=== PATIENT | female | born 1965 | race Caucasian/White ===

== ENCOUNTER 2020-12-17 06:10 | Inpatient (IN) | payer BC, MEDICARE ==
[~2020-12-17] VITALS: Ht 154.9 cm; Wt 60.8 kg
[~2020-12-17 06:10] MED LIST: NORCO 5-325 TA1 EACH PO
[2020-12-17 06:12] VITALS: BP 148/91
[2020-12-17] MEDS ORDERED: ASA81BEC PO (06:24)
[2020-12-17] MEDS ORDERED: CARVEDILOL12.5 MG PO (06:24)
[2020-12-17 06:39] LABS: HEMOGLOBIN 11.3 gm/dL (12.0-15.0); MCHC 33.3 g/dL (28.0-37.0); MCV 108.4 fL (80.0-100.0); MPV 10.2 fl. (7.2-11.1); NUCLEATED RBCS 0 /100WBC; PLATELET COUNT* 169 thou/uL (150-400); RBC 3.14 mil/uL (4.20-5.00); RDW-CV 13.8 % (10.5-14.5); WBC 24.8 thou/uL (4.0-11.0)
[2020-12-17 06:48] LABS: CALCIUM 8.6 mg/dL (8.5-10.1); POTASSIUM 3.9 mmol/L (3.5-5.1)
[2020-12-17 06:59] LABS: ALBUMIN 2.9 g/dL (3.4-5.0); TOTAL BILIRUBIN 2.3 mg/dL (<0.1-1.0); TOTAL PROTEIN 8.8 g/dL (6.4-8.2)
[2020-12-17 07:21] LABS: BE -0.1 mmol/L (-2 to +3); PCO2 38.8 mmHg (35.0-45.0); pH 7.415 (7.340-7.450)
[2020-12-17 07:25] LABS: PO2 43.3 mmHg (75.0-100.0)
[2020-12-17 07:42] LABS: ABSOLUTE LYMPHOCYTES 1.2 thou/uL (0.8-5.3); ABSOLUTE NEUTROPHILS 23.6 thou/uL (1.6-8.1)
[2020-12-17 07:43] LABS: PLATELET ESTIMATE ADEQUATE
[2020-12-17 09:56] VITALS: BP 118/88
[2020-12-17 11:00] VITALS: BP 104/74
--- NOTE | 2020-12-17 12:23 | EKG ---
[place] [address] ELECTROCARDIOGRAM REPORT Name: EWELINA GONZALEZ Room: [address] IN ..#: [id number] Admission: 12/17/20 Attend Phys: Lillian Truong, Discharge: Date of : 65 Date of Service: 12/17/20 0610 Report #: [id number] THIS REPORT FOR: //name// [facility] ED Test Date: 2020-12-17 Test Time: 06:10:41 Pat Name: EWELINA GONZALEZ Department: Room: [facility] Gender: F Yard Person: [place] : 1965 Requested By: Larissa Cox Order Number: [id number] MD: Melecio Naidu Measurements Intervals [place] Rate: 109 P: 53 MS: 162 QRS: 13 QRSD: 84 T: 61 QT: 360 QTc: 485 Interpretive Statements Sinus tachycardia No previous ECG available for comparison Electronically Signed On 12-17-2020 12:22:52 CDT by Melecio Naidu [email or web address] <ELECTRONICALLY SIGNED> By: Melecio Naidu MD, [facility] 12/17/20 1222 9 9 Melecio Naidu MD, [facility] /EPI
--- NOTE | 2020-12-17 12:42 | 2DMMODE ---
[place] [address] 2 D/M-MODE ECHOCARDIOGRAM Name: GONZALEZEWELINA K Room: [address] IN [facility]#: [id number] Admission: 12/17/20 Attend Phys: Lillian Truong, Discharge: Date of : 65 Date of Service: 12/17/20 1242 Report #: [id number] THIS REPORT FOR: cc: Иван Du MD, Tuongvan T. MD Holkins, John M. MD [facility] ~ APPROVED REPORT Study performed: 12/17/2020 11:03:08 EXAM: Comprehensive 2D, Doppler, and color-flow Echocardiogram Patient Location: In-Patient Room #: 104 Status: routine BSA: 1.59 HR: 78 bpm BP: 103/74 mmHg Rhythm: NSR Other Information Study Quality: Good Indications Congestive Heart Failure 2D Dimensions IVSd: 9.18 (7-11mm) LVOT Diam: 19.45 (18-24mm) LVDd: 43.93 mm PWd: 8.11 (7-11mm) Ascending Ao: 29.19 (22-36mm) LVDs: 34.17 (25-40mm) Aortic Root: 25.81 mm Volumes Left Atrial Volume (Systole) LA ESV Index: 30.50 mL/m2 Aortic Valve AoV Peak Efrain.: 0.94 m/s AO Peak Gr.: 3.54 mmHg LVOT Max P.72 mmHg AO Mean Gr.: 1.85 mmHg LVOT Mean P.31 mmHg LVOT Max V: 0.83 m/s AO V2 VTI: 17.49 cm LVOT Mean V: 0.53 m/s MACEY (VTI): 2.72 cm2 LVOT V1 VTI: 16.00 [place] [address] 2 D/M-MODE ECHOCARDIOGRAM Name: EWELINA GONZALEZ Room: [address] IN ..#: [id number] Admission: 12/17/20 Attend Phys: Lillian Truong, Discharge: Date of : 65 Date of Service: 12/17/20 1242 Report #: [id number] Mitral Valve E/A Ratio: 1.84 MV Decel. Time: 132.60 ms MV E Max Efrain.: 1.13 m/s MV PHT: 38.46 ms MVA (PHT): 5.72 cm2 TDI E/Lateral E': 11.30 E/Medial E': 11.30 Medial E' Efrain.: 0.10 m/s Lateral E' Efrain.: 0.10 m/s Pulmonary Valve PV Peak Efrain.: 0.70 m/s PV Peak Gr.: 1.94 mmHg Tricuspid Valve RAP Estimate: 5.00 mmHg TR Peak Gr.: 17.69 mmHg RVSP: 22.00 mmHg PA Pressure: 22.00 mmHg Left Ventricle The left ventricle is normal size. Regional wall motion abnormalities are noted with mid anterior and septal hypokinesis. There is normal left ventricular wall thickness. Left ventricular systolic function is mild to moderately decreased. LVEF is 40-45%. The left ventricular diastolic function is normal. Right Ventricle The right ventricle is normal size. The right ventricular systolic function is normal. Atria The left atrium size is normal. The right atrium size is normal. Aortic Valve The aortic valve is normal in structure. No aortic regurgitation is present. There is no aortic valvular stenosis. Mitral Valve The mitral valve is normal in structure. Mild to moderate mitral regurgitation. No evidence of mitral valve stenosis. Tricuspid Valve The tricuspid valve is normal in structure. Mild tricuspid regurgitation[place] [address] 2 D/M-MODE ECHOCARDIOGRAM Name: EWELINA GONZALEZ Room: [address] IN [facility]#: [id number] Admission: 12/17/20 Attend Phys: Lillian Truong, Discharge: Date of : 65 Date of Service: 12/17/20 1242 Report #: [id number] Pulmonic Valve The pulmonary valve is normal in structure. Trace pulmonic regurgitation. Great Vessels The aortic root is normal in size. IVC is normal in size and collapses >50% with inspiration. Pericardium There is no pericardial effusion. <Conclusion> The left ventricle is normal size. There is normal left ventricular wall thickness. Left ventricular systolic function is mild to moderately decreased. LVEF is 40-45%. The right ventricle is normal size. The left atrium size is normal. The aortic valve is normal in structure. The mitral valve is normal in structure. Mild to moderate mitral regurgitation. The tricuspid valve is normal in structure. Mild tricuspid regurgitation. No pulmonary hypertension. IVC is normal in size and collapses >50% with inspiration. There is no pericardial effusion. Regional wall motion abnormalities are noted with mid anterior and septal hypokinesis. <ELECTRONICALLY SIGNED> By: Melecio Naidu MD, FACC 12/17/20 1242 [id number] Melecio Naidu MD, FACC /INF
--- NOTE | 2020-12-17 13:25 | NUR ---
CM ATTEMPTED TO COMPLETE ASSESSMENT VIA TELEPHONE D/T ISOLATED PRECAUTIONS. THERE WAS NO ANSWER ON PT CELL PHONE/ROOM PHONE OR PHONE.
[2020-12-17 14:07] LABS: BE -2.6 mmol/L (-2 to +3); PCO2 35.1 mmHg (35.0-45.0); pH 7.408 (7.340-7.450)
[2020-12-17 14:10] LABS: PO2 41.9 mmHg (75.0-100.0)
[2020-12-17 16:26] LABS: URINE BILIRUBIN NEGATIVE (Negative); URINE BLOOD TRACE (Negative); URINE CLARITY CLEAR; URINE COLOR YELLOW; URINE GLUCOSE-RANDOM NEGATIVE (Negative); URINE KETONES NEGATIVE (Negative); URINE LEUKOCYTES-REFLEX NEGATIVE (Negative); URINE NITRITE-REFLEX NEGATIVE (Negative); URINE PROTEIN 1+ (Negative); URINE UROBILINOGEN 0.2 E.U./dl (0.2-1.0)
--- NOTE | 2020-12-17 17:27 | NUR ---
1715-PHONED ct AND NO ANSWER X 2 FOR AVAILABILITY TO COMPLETE STAT ct OF HEAD.MARCK CALLED BACK AND REPORTS THAT SHE IS BUSY WITH OTHER MORE CRITICAL PTS AT THIS TIME AND SHE WILL CALL WHEN SHE IS AVAILABLE.
--- NOTE | 2020-12-17 17:28 | NUR ---
1605-electrical sign wirer NOTIFIED THIS NURSE THAT SHE IS UNAVAILABLE TO DO STAT ct AT THIS TIME DUE TO A CODE STROKE.
[2020-12-17 17:36] VITALS: BP 119/82
[2020-12-17 19:55] VITALS: BP 114/68
[2020-12-17 23:47] VITALS: BP 123/84
--- NOTE | 2020-12-18 02:53 | NUR ---
ASSUMED CARE FROM DAY SHIFT PT SLEEPING, 2200 PT AWAKEN FOR HS MEDICATION. PT UP TO BEDSIDE COMMODE TOLERATED WELL, NO SOA NOTED WITH ACTIVITY. SAT 96% ON6L NC. PT HAVE NO CONCERNS, DISCUSSED [place] OF AND AGREEABLE. PT BIPAP BUT WAS ONLY ABLE TO TOLERATE FOR 2 HOURS,THEN BACK ON NASAL CANNULA. RESTING WELL THROUGHOUT HOURLY ROUNDS.WILL REPORT CHANGES OR ABNORMAL FINDING.
--- NOTE | 2020-12-18 03:19 | NUR ---
Pt requested to be removed from Bipap and place on 6lpm nasal cannula it is a high flow nasal cannula at 0100
[2020-12-18 04:42] VITALS: BP 123/78
[2020-12-18 07:55] LABS: HEMATOCRIT 27.6 % (37.0-47.0); HEMOGLOBIN 9.4 gm/dL (12.0-15.0); MCH 36.3 pg (26.0-34.0); MCV 106.9 fL (80.0-100.0); MPV 10.1 fl. (7.2-11.1); RBC 2.58 mil/uL (4.20-5.00); RDW-CV 13.8 % (10.5-14.5)
[2020-12-18 08:00] VITALS: BP 131/84
[2020-12-18 08:40] LABS: ALBUMIN 2.5 g/dL (3.4-5.0); CALCIUM 8.2 mg/dL (8.5-10.1); CREATININE 0.8 mg/dL (0.6-1.3); MAGNESIUM 2.5 mg/dL (1.8-2.4); POTASSIUM 3.9 mmol/L (3.5-5.1); TOTAL BILIRUBIN 1.8 mg/dL (<0.1-1.0); TOTAL PROTEIN 7.4 g/dL (6.4-8.2)
[2020-12-18 09:25] LABS: WBC 6.4 thou/uL (4.0-11.0)
[2020-12-18 12:00] VITALS: BP 103/64
--- NOTE | 2020-12-18 14:11 | NUR ---
CM attempted to contact Pt via phone, no answer. CM left VM for both Pt's son and , await call backs. Per Chart review. Pt is A&O. Resides at home. Independent. Looking better. PUI. CM to continue to attempt to reach either Pt or family. Pt on 5L o2
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
[2020-12-18 16:00] VITALS: BP 134/84
--- NOTE | 2020-12-18 18:54 | NUR ---
PT HAS BEEN IN ROOM. AMBULATES WITH SOME WEAKNESS FROM BED TO COMMODE. VERY COOPERATIVE WITH CARE.
[2020-12-18 20:00] VITALS: BP 130/78
[2020-12-19] VITALS: BP 138/93
[2020-12-19 04:00] VITALS: BP 133/79
[2020-12-19 05:47] LABS: ABSOLUTE LYMPHOCYTES 0.9 thou/uL (0.8-5.3); ABSOLUTE MONOCYTES 0.1 thou/uL (0.0-1.2); ABSOLUTE NEUTROPHILS 4.3 thou/uL (1.6-8.1); BASOPHILS 0.4 %; HEMATOCRIT 27.7 % (37.0-47.0); HEMOGLOBIN 9.5 gm/dL (12.0-15.0); LYMPHOCYTES 16.1 %; MCH 37.1 pg (26.0-34.0); MCHC 34.2 g/dL (28.0-37.0); MCV 108.3 fL (80.0-100.0); MONOCYTES 2.1 %; MPV 9.8 fl. (7.2-11.1); NUCLEATED RBCS 0 /100WBC; PLATELET COUNT* 98 thou/uL (150-400); POLYS 81.4 %; RBC 2.56 mil/uL (4.20-5.00); RDW-CV 13.6 % (10.5-14.5); WBC 5.3 thou/uL (4.0-11.0)
--- NOTE | 2020-12-19 05:53 | NUR ---
PT AO X4 ON 4L O2 WITH SATS APPROPRIATE, LUNGS CTA/DIM WITH SOME NONPRODUCTIVE COUGH. PT WENT FOR CT CHEST/PELVIS LAST PM. SHE IS REQUESTING SOMETHING FOR COUGH. PT IS UP INDEPENDENTLY TO BSC WITHOUT PROBLEM. CALL LIGHT IN REACH FOR PT SAFETY
[2020-12-19 06:11] LABS: ALBUMIN 2.5 g/dL (3.4-5.0); CALCIUM 8.3 mg/dL (8.5-10.1); CREATININE 0.8 mg/dL (0.6-1.3); MAGNESIUM 2.4 mg/dL (1.8-2.4); POTASSIUM 3.9 mmol/L (3.5-5.1); TOTAL BILIRUBIN 2.1 mg/dL (<0.1-1.0); TOTAL PROTEIN 7.1 g/dL (6.4-8.2)
[2020-12-19 07:08] LABS: HEPATITIS B SURFACE AG Negative (Negative)
[2020-12-19 08:00] VITALS: BP 142/77
[2020-12-19 10:31] LABS: CHOLESTEROL 155 mg/dL (<200); HDL CHOLESTEROL 20 mg/dL (>40); LDL CHOLESTEROL 104 mg/dL (<100); TC:HDL 7.8 Ratio (Not establshd); TRIGLYCERIDE 156 mg/dL (<150); VLDL 31 mg/dL (<40)
[2020-12-19 10:36] LABS: SERUM ASSESSMENT Clear
[2020-12-19 12:00] VITALS: BP 148/84
--- NOTE | 2020-12-19 13:47 | NUR ---
Lfts up. Bacteremia. CM left VM for and son again today, continue to try to reach
[2020-12-19 16:00] VITALS: BP 151/91
--- NOTE | 2020-12-19 19:45 | NUR ---
patient A,OX4 , cardiology [employer] called for patient NPO by mid night . to hold coreg for procedure tommorrow . No issue voiced at this time.
[2020-12-19 20:00] VITALS: BP 160/82
[2020-12-19 23:06] LABS: MYCOPLASMA PNEUMONIA IgG 272 U/mL (0-99); MYCOPLASMA PNEUMONIA IgM <770 U/mL (0-769)
[2020-12-20] VITALS: BP 145/89
[2020-12-20 04:00] VITALS: BP 164/82
[2020-12-20 04:23] LABS: HEMATOCRIT 28.8 % (37.0-47.0); HEMOGLOBIN 9.9 gm/dL (12.0-15.0); MCHC 34.4 g/dL (28.0-37.0); MCV 107.5 fL (80.0-100.0); MPV 9.6 fl. (7.2-11.1); RBC 2.68 mil/uL (4.20-5.00); RDW-CV 13.7 % (10.5-14.5); WBC 6.4 thou/uL (4.0-11.0)
[2020-12-20 04:57] LABS: ALBUMIN 2.6 g/dL (3.4-5.0); CALCIUM 8.5 mg/dL (8.5-10.1); CREATININE 0.7 mg/dL (0.6-1.3); MAGNESIUM 2.2 mg/dL (1.8-2.4); POTASSIUM 3.9 mmol/L (3.5-5.1); TOTAL BILIRUBIN 2.7 mg/dL (<0.1-1.0); TOTAL PROTEIN 7.4 g/dL (6.4-8.2)
[2020-12-20 05:04] LABS: % SATURATION 33 % (20-39); IRON 70 ug/dL (50-175)
--- NOTE | 2020-12-20 06:10 | NUR ---
PT AO X4 ON 3L NC SATTING APPROPTRIATELY, VSS, LUNGS DIMINISHED WITH SOME AUDIBLE WHEEZES THROUGHOUT. PT HAS NON PRODUCTIVE COUGH. SHE HAS HAD DIARRHEA FOR 24 HRS WITH 3 OR MORE STOOLS SO PER PROTOCOL A SPECIMENT WAS SENT FOR CDIFF CX. PT HAS BEEN NPO SINCE MIDNIGHT WITH NO CAFFIENE FOR HER STRESS TEST. PT HAS BEEN GETTING UP TO BSC AND STATES SHE IS FEELING BETTER ABOUT AMBULATING THAN SHE HAS BEEN PREVIOUSLY. CALL LIGHT IN REACH AND BED ALARM ON FOR PT SAFETY.
[2020-12-20 08:20] VITALS: BP 171/89
--- NOTE | 2020-12-20 15:21 | NUR ---
Positive blood cultures. Ex ox at dc. Therapies to see.
[2020-12-20 15:40] VITALS: BP 166/84
--- NOTE | 2020-12-20 16:46 | CARDNUC ---
[place] [address] CARDIAC NUCLEAR IMAGING REPORT Name: GONZALEZEWELINA K Room: [address] IN [facility]#: [id number] Admission: 12/17/20 Attend Phys: Lillian Truong, Discharge: Date of : 65 Date of Service: 12/20/20 1646 Report #: [id number] THIS REPORT FOR: cc: Иван Du MD, Tuongvan T. MD Liston, Michael J. MD [facility] ~ APPROVED REPORT Imaging Protocol: Rest Tc-99m/Stress Tc-99m 1 day Study performed: 12/19/2020 16:51:00 Indication: Chest pain Patient Location: In-Patient Room #: 104 Stress Tech: marley mathews Stress Nurse: Kimberly Rodriguez RN NM Tech:WU Miller Ht: 5 ft 1 in Wt: 133 lbs BSA: 1.59 m2 BMI: 25.12 Medical History Medical History: COPD, HTN Medications: asa-81 Allergies: penicillin Cardiac Risk Factors: Age, Current Smoker, HTN Exercise History: Sedentary Resting Data Rest SPECT myocardial perfusion imaging was performed in supine position 30 minutes following the intravenous injection of 11.7 mCi of Tc-99m Sestamibi. Time of rest injection: 754 Date: 12/20/2020 The images were gated to evaluate regional wall motion and calculate left ventricular ejection fraction. Administration Route: IV Pharmacologic Stress Pharmacologic stress test was performed by injecting Regadenoson 0.4 mg IV push over 10-15 seconds immediately followed by the intravenous injection of 28.8 mCi of Tc-99m Sestamibi. Time of stress injection: 1240 Date: 12/20/2020 Administration Route: IV Gated Stress SPECT was performed 40 [place] [address] CARDIAC NUCLEAR IMAGING REPORT Name: EWELINA GONZALEZ Room: [address]#: [id number] Admission: 12/17/20 Attend Phys: Lillian Truong, Discharge: Date of : 65 Date of Service: 12/20/20 1646 Report #: [id number] injection. The images were gated to evaluate regional wall motion and calculate left ventricular ejection fraction. Prone imaging was performed. Stress Test Details Stress Test: Pharmacologic stress testing performed using 0.4 mg of regadenoson per 5 mL given IV over 10 seconds. Reason for pharmacologic stress test: physical limitation. HR Max Heart Rate (APMHR): 165 bpm Resting HR: 77 bpm Target HR (85% APMHR): 140 bpm Max HR Achieved: 93 bpm % of APMHR: 56 Recovery HR: 88 bpm BP Resting BP: 173/100 mmHg Max BP: 157/94 mmHg Recovery BP: 162/104 mmHg ECG Resting ECG: Sinus Rhythm Stress ECG: Sinus Rhythm ST Change: None Arrhythmia: None Recovery ECG: Sinus Rhythm Recovery ST Change: None Recovery Arrhythmia: None Clinical The patient symptoms. Nurse Comments pt has bilateral pneumonia and is on O2. Cannot walk on treadmill Stress ECG Conclusion The baseline twelve-lead EKG shows sinus rhythm without significant ST segment or T wave. EKGs obtained during and post Lexiscan infusion show sinus rhythm with no significant ST segment or T wave changes when compared to baseline. There were no stress-induced arrhythmias. Study Quality Study: Good Artifact: [place] [address] CARDIAC NUCLEAR IMAGING REPORT Name: EWELINA GONZALEZ Room: [address]#: [id number] Admission: 12/17/20 Attend Phys: Lillian Truong, Discharge: Date of : 65 Date of Service: 12/20/20 1646 Report #: [id number] Study Data At rest, the left ventricular ejection fraction was 62%.. Post stress, the left ventricular ejection was 62%.. TID = 0.99. Perfusion Perfusion images obtained in the supine position show mild photopenia in the mid anterior wall that resolves with post-rest prone imaging suggesting breast attenuation artifact. No other significant fixed or reversible defects were identified. Wall Motion Normal left ventricular wall motion. Nuclear Conclusion ECG Findings: negative for ischemia Clinical Findings: negative for ischemia Nuclear Findings: negative for ischemia Exercise Capacity: not assessed Left Ventricular Function: normal Risk Study: low Perfusion images show no defect to suggest ischemia. Global LV systolic function is normal. This is a low risk study. <Conclusion> The baseline twelve-lead EKG shows sinus rhythm without significant ST segment or T wave. EKGs obtained during and post Lexiscan infusion show sinus rhythm with no significant ST segment or T wave changes when compared to baseline. There were no stress-induced arrhythmias. <ELECTRONICALLY SIGNED> By: Jose Stone MD, FACC 12/20/20 1646 1646 1646 Jose Stone MD, FACC /INF
[2020-12-20 20:00] VITALS: BP 160/81
[2020-12-20 22:06] LABS: IgG 1377 mg/dL (586-1602); IgM 85 mg/dL (26-217)
[2020-12-21] VITALS: BP 98/74
[2020-12-21 04:00] VITALS: BP 127/67
[2020-12-21 04:52] LABS: ALBUMIN 2.4 g/dL (3.4-5.0); CALCIUM 8.4 mg/dL (8.5-10.1); CREATININE 0.8 mg/dL (0.6-1.3); MAGNESIUM 1.9 mg/dL (1.8-2.4); POTASSIUM 4.1 mmol/L (3.5-5.1); TOTAL BILIRUBIN 2.4 mg/dL (<0.1-1.0); TOTAL PROTEIN 6.9 g/dL (6.4-8.2)
[2020-12-21 07:08] LABS: CERULOPLASMIN 28.1 mg/dL (19.0-39.0)
[2020-12-21 08:00] VITALS: BP 160/65
[2020-12-21] MEDS ORDERED: PREDNISONE 10 M10 MG PO (10:58)
[2020-12-21] MEDS ORDERED: CEFDINIR300 MG PO (10:58)
[2020-12-21] MEDS ORDERED: ALBUTEROL2.5 MG/31 INH (11:04)
[2020-12-21 11:46] VITALS: BP 96/57
[2020-12-21] MEDS ORDERED: LEVOFLOXACIN750 MG PO (16:37)
[2020-12-21] MEDS ORDERED: ZPAK PO (16:38)
--- NOTE | 2020-12-21 17:16 | NUR ---
patient discharged instructions and discharge medications completed with patient . Iv access discontinue before discharge . 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
[2020-12-23 21:05] LABS: ANA INTERPRETATION Negative (())
== END 2020-12-21 16:00 | disposition home or self-care (01) | DRG 193 ==
LOC: M.ERS 06:10 → M.TBA-ER 06:59 → M.ORTHSURG 08:16
PROVIDERS: Emergency Medicine; Internal Medicine Critical Care Medicine; Internal Medicine Gastroenterology; ADMIT Internal Medicine; ATTEND Internal Medicine
PROC: 5A09357 Assistance with Respiratory Ventilation, Less than 24 Consecutive Hours, Continuous Positive Airway Pressure (ICD-10-PCS; principal; 2020-12-17)
PROC: 5A0935A Assistance with Respiratory Ventilation, Less than 24 Consecutive Hours, High Flow/Velocity Cannula (ICD-10-PCS; 2020-12-18)
PROC: 5A0935A Assistance with Respiratory Ventilation, Less than 24 Consecutive Hours, High Flow/Velocity Cannula (ICD-10-PCS; 2020-12-21)
DX: J15.9 Unspecified bacterial pneumonia (principal); J96.01 Acute respiratory failure with hypoxia; I50.23 Acute on chronic systolic (congestive) heart failure; J44.1 Chronic obstructive pulmonary disease with (acute) exacerbation; J44.0 Chronic obstructive pulmonary disease with (acute) lower respiratory infection; I42.9 Cardiomyopathy, unspecified; R78.81 Bacteremia; K92.0 Hematemesis; N39.0 Urinary tract infection, site not specified; D69.6 Thrombocytopenia, unspecified; R79.89 Other specified abnormal findings of blood chemistry; R79.1 Abnormal coagulation profile; R41.82 Altered mental status, unspecified; D64.9 Anemia, unspecified; F17.210 Nicotine dependence, cigarettes, uncomplicated; E87.70 Fluid overload, unspecified; K75.81 Nonalcoholic steatohepatitis (NASH); B96.20 Unspecified Escherichia coli [E. coli] as the cause of diseases classified elsewhere; Z20.822 Contact with and (suspected) exposure to COVID-19; Z28.21 Immunization not carried out because of patient refusal; Z90.710 Acquired absence of both cervix and uterus; Z98.891 History of uterine scar from previous surgery; Z79.899 Other long term (current) drug therapy; Z79.82 Long term (current) use of aspirin; Z88.0 Allergy status to penicillin; Z87.828 Personal history of other (healed) physical injury and trauma; Z86.16 Personal history of COVID-19; Z71.6 Tobacco abuse counseling